=== PATIENT | female | born 1985 | race Caucasian/White ===

== ENCOUNTER → 2019-10-02 08:52 | Outpatient (CLI) | payer OTHER, SELFPAY ==
[2019-10-02 09:31] LABS: Basophils # 0.1 K/mm3 (0-0.2); Basophils % 0.9 % (0.1-2.0); Eosinophils # 0.1 K/mm3 (0.0-0.4); Eosinophils % 1.3 % (0.1-12.0); Hematocrit 41.9 % (37.0-47.0); Hemoglobin 14.2 g/dL (12.2-16.2); Lymphocytes # 2.2 K/mm3 (0.7-4.5); Lymphocytes % 39.6 % (10-50); Mean Corpuscular HGB Conc 33.7 g/dL (31.8-35.4); Mean Corpuscular Hemoglobin 28.6 pg (27.0-31.2); Mean Corpuscular Volume 84.7 fl (81-99); Mean Platelet Volume 9.1 fl (7.4-10.4); Monocytes # 0.3 K/mm3 (0.1-1.0); Neutrophils % 53.2 % (37.0-80.0); Platelet Count 234 K/mm3 (142-424); Red Blood Count 4.95 M/mm3 (4.20-5.40); Red Cell Distribution Width 12.6 % (11.5-17.5); White Blood Count 5.7 K/mm3 (4.8-10.8)
[2019-10-02 11:17] LABS: Chloride 101 mmol/L (98-107); Potassium 4.2 mmoL/L (3.5-5.1); Sodium 137 mmol/L (136-145)
[2019-10-02 11:19] LABS: Alanine Aminotransferase 18 U/L (12-78); Aspartate Amino Transferase 24 U/L (14-36); Blood Urea Nitrogen 13 mg/dl (7-17); Estimated Glomerular Filt Rate 82 ml/min (>60); GFR (African American) 99 ML/MIN (>60)
[2019-10-02 11:20] LABS: Albumin/Globulin Ratio 1.5 (1.1-1.8); Alkaline Phosphatase 87 U/L (38-126); Anion Gap 9.2 mEq/L (5-15); Bilirubin,Total 0.4 mg/dl (0.2-1.3); Calcium 9.3 mg/dl (8.4-10.2); Carbon Dioxide 31 mmol/L (22.0-30.0); Chol/HDL Ratio 3.5 (1-3.5); Cholesterol 202 mg/dl (140-200); Globulin 2.7 g/dL (1.3-3.2); Glucose 102 mg/dl (74-100); HDL Cholesterol 57 mg/dl (40-60); Total Protein,Serum 6.7 g/dl (6.3-8.2); Triglycerides 101 mg/dl (30-150); VLDL Cholesterol 20 mg/dL (0-40)
[2019-10-02 11:31] LABS: Direct LDL Cholesterol 119.45 mg/dL (100-129)
== END ==
PROVIDERS: Visit Provider Nurse Practitioner Family
DX: Z00.00 Encounter for general adult medical examination without abnormal findings (principal)
CPT/HCPCS: 36415; 80053; 80061; 84443; 85025

== ENCOUNTER → 2020-01-16 15:45 | Outpatient (POV) | payer OTHER, SELFPAY | PROVIDERS: PCP Nurse Practitioner Family; Visit Provider Dermatology | DX: Z00.00 Encounter for general adult medical examination without abnormal findings (principal) ==

== ENCOUNTER → 2020-06-04 14:37 | Outpatient (CLI) | payer OTHER, SELFPAY ==
[2020-06-06 12:35] LABS: Covid-19 Nasal PCR Sendout Lex Not Detected
== END ==
PROVIDERS: PCP Nurse Practitioner Family; Visit Provider Nurse Practitioner Family
DX: Z03.818 Encounter for observation for suspected exposure to other biological agents ruled out (principal)
CPT/HCPCS: U0004

== ENCOUNTER 2020-11-06 13:33 | Emergency (ER) | payer OTHER, SELFPAY ==
[2020-11-06 13:35] VITALS: BP 152/81; PULSE 104; RESP 18; TEMP 36.6; O2SAT 98; BMI 28.6
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
[2020-11-06 14:00] VITALS: BP 138/89; PULSE 115; O2SAT 95
[2020-11-06 14:13] LABS: Urine Pregnancy, HCG Qual. Negative (Negative)
[2020-11-06 14:17] LABS: Chloride 104 mmol/L (98-107)
[2020-11-06 14:18] LABS: Potassium 4.1 mmoL/L (3.5-5.1); Sodium 137 mmol/L (136-145)
[2020-11-06 14:20] LABS: Basophils # 0.1 K/mm3 (0-0.2); Basophils % 0.6 % (0.1-2.0); Blood Urea Nitrogen 11 mg/dl (7-17); Creatinine Clearance Estimated 119 mL/min (50-200); Eosinophils # 0.1 K/mm3 (0.0-0.4); Eosinophils % 1.1 % (0.1-12.0); Estimated Glomerular Filt Rate 81 ml/min (>60); GFR (African American) 98 ML/MIN (>60); Hematocrit 41.7 % (37.0-47.0); Hemoglobin 13.8 g/dL (12.2-16.2); Lymphocytes # 2.7 K/mm3 (0.7-4.5); Lymphocytes % 28.6 % (10-50); Mean Corpuscular HGB Conc 33.2 g/dL (31.8-35.4); Mean Corpuscular Hemoglobin 28.1 pg (27.0-31.2); Mean Corpuscular Volume 84.7 fl (81-99); Mean Platelet Volume 9.3 fl (7.4-10.4); Monocytes # 0.3 K/mm3 (0.1-1.0); Monocytes % 3.5 % (1.7-9.3); Neutrophils # 6.1 K/mm3 (1.8-7.8); Neutrophils % 66.2 % (37.0-80.0); Platelet Count 263 K/mm3 (142-424); Red Blood Count 4.92 M/mm3 (4.20-5.40); Red Cell Distribution Width 13.4 % (11.5-17.5); White Blood Count 9.3 K/mm3 (4.8-10.8)
[2020-11-06 14:21] LABS: Anion Gap 10.1 mEq/L (5-15); Calcium 9.2 mg/dl (8.4-10.2); Carbon Dioxide 27 mmol/L (22.0-30.0); Glucose 116 mg/dl (74-100)
--- NOTE | 2020-11-06 14:43 | PC.NURSE ---
Pt returned from rad.
[2020-11-06 15:50] VITALS: BP 143/71; PULSE 83; RESP 18; TEMP 36.7; O2SAT 99
== END 2020-11-06 15:56 | disposition home or self-care (01) ==
PROVIDERS: Emergency Provider Family Medicine; PCP Nurse Practitioner Family
DX: M43.6 Torticollis (principal); V43.53XA Car driver injured in collision with pick-up truck in traffic accident, initial encounter; Y92.414 Local residential or business street as the place of occurrence of the external cause
CPT/HCPCS: 70450; 71275; 72125; 74177; 80048; 81025; 85025; 96374; 99282; Q9967

== ENCOUNTER → 2020-11-26 13:36 | Outpatient (POV) | payer OTHER, SELFPAY | PROVIDERS: Visit Provider Dermatology | DX: Z00.00 Encounter for general adult medical examination without abnormal findings (principal) ==

== ENCOUNTER 2020-12-30 12:50 | Emergency (ER) | payer OTHER, SELFPAY ==
[2020-12-30 12:50] VITALS: BP 148/88; PULSE 128; RESP 18; TEMP 37.2; O2SAT 96; BMI 30.2
--- NOTE | 2020-12-30 13:24 | HMH.EDUTC ---
[facility] [place] Disposition Clinical Impression: Strep throat Disposition: Home, Self-Care Condition on Discharge: Good Instructions: DI for Strep Throat, Strep Throat, Sinusitis Additional Instructions: *Monitor Temp, Over the counter Motrin or Tylenol as directed/as needed Tylenol every 4 hours and Motrin every 6 hours (as long as your family doctor has told you that you can take it) for fever or pain. and straight to ER if unable to lower temp less than 101.0 after medication given *Warm salt water gargles may help to soothe the throat *Throat Lozenges *Warm fluids like tea with honey may help to soothe the throat *Sleep elevated *Humidifier/Vaporizer If you did not take Penicillin shot or was unable to, start taking antibiotic immediately and make sure that you take it for the FULL length of time although you should start to feel better in 24-48 hours *change toothbrush and toothpaste 24-48 hours after starting to take antibiotics so you do not reinfect yourself Monitor Temp. Tylenol and/or Ibuprofen as needed. ER if fever is no less than 101 despite alternating Tylenol and Ibuprofen * Encourage fluids, water, Gatorade, powerade, pedialyte if /toddler/or child *Cold fluids, popsicles and ice cream may feel good on his throat Follow up IMMEDIATELY for new or worsening symptoms or no Noticeable improvement over the next 48-72 hours. 911 for difficulty breathing or swallowing You were tested for today for COVID19 your test result should be back in the next 24-48 hours, you may call to the [facility] to see if your test results are back in the next 48 hours [phone] [facility] hours are 9am-9pm You was given a handout with instructions for Self Quarantine and Self isolation for while you wait on test results and what to do if they are positive If you are positive the Health Dept will be contacting you also Prescriptions: Amoxicillin/Potassium Clav [Augmentin 875-125 Tablet] 1 tab PO Q12H 10 Days #20 tab Transmission Status: Pending to [facility] #[id number] methylPREDNISolone [Medrol 4mg tab] 4 mg PO DIRECTED #21 tab Transmission Status: Pending to [employer] #[id number] Benzonatate [Tessalon Perle 100mg Cap*] 100 mg PO TID PRN #15 cap PRN Reason: Cough Transmission Status: Pending to [facility] [facility] #[id number] Referrals: Samira Harvey APRN [Primary Care Provider] - As needed Time of Disposition: 13:45 Medical Decision Making - Jarred Inquiry Pt receiving controlled substance: No Jarred was queried for this patient: No Vital Signs: 12/30/20 12:50 Temperature 99.0 F Temperature Source Oral Pulse Rate [Right Brachial] 128 H Respiratory Rate 18 Blood Pressure [Right Arm] 148/88 H Blood Pressure Mean [Right Arm] 108 Blood Pressure Source [Right Arm] Automatic Cuff Blood Pressure Position [Right Arm] Sitting 02 Sat by Pulse Oximetry 96 Oxygen Delivery Method Room Air - Lab Data Lab results reviewed: Yes: I reviewed the patient's lab results. Orders (Tests/Meds): ORDERS Category Date Time Status Covid-19 Nasal PCR ([facility]) Routine Lab 12/30/20 13:10 Received [facility] [place] HPI - General Stated complaint: congestion, aches, sore throat Time Seen by Provider: 12/30/20 13:24 Mode of Arrival: Ambulatory Source of Information: Patient Limitations: No Limitations Description of Symptoms (Recalled from Triage Doc. by RN): PATIENT C/O BODY ACHES, SCRATCHY THROAT, CHEST CONGESTION, PRODUCTIVE COUGH, HEADACHE, AND NASAL CONGESTION SINCE WEDNESDAY. RECENT TRAVEL HEENT Symptoms (Recalled from RN notes): Yes Resp Symptoms (Recalled from RN notes): No Skin Symptoms (Recalled from RN notes): No MS Symptoms (Recalled from RN notes): Yes Functional Status (Recalled from RN notes): WNL - History of Present Illness Provider Complaint: Patient states that she has just recently got [place] that she is feeling achy like she may have the flu States that she has been having sinus pressure, sore throat,
[2020-12-30 13:48] LABS: UTC Strep Screen (Rapid) Positive (Negative)
[2020-12-30 13:50] VITALS: BP 148/88; PULSE 128; RESP 18; TEMP 37.2; O2SAT 96
[2020-12-30 19:02] LABS: UTC Influenza A Antigen Negative (Negative)
[2020-12-30 19:03] LABS: UTC Influenza B Antigen Negative (Negative)
== END 2020-12-30 13:52 | disposition home or self-care (01) ==
PROVIDERS: Emergency Provider Nurse Practitioner; PCP Nurse Practitioner Family
DX: J02.0 Streptococcal pharyngitis (principal)
CPT/HCPCS: 87804; 87880; 99202; G0463; U0003

== ENCOUNTER → 2021-01-27 17:54 | Outpatient (CLI) | payer OTHER, SELFPAY | PROVIDERS: Visit Provider Nurse Practitioner Family | DX: R30.0 Dysuria (principal) | CPT/HCPCS: 87086; 87088; 87186 ==

== ENCOUNTER → 2021-07-23 08:21 | Outpatient (CLI) | payer OTHER, SELFPAY | PROVIDERS: PCP Nurse Practitioner Family; Visit Provider Nurse Practitioner | DX: U07.1 COVID-19 (principal) | CPT/HCPCS: C9803; U0003; U0005 ==

== ENCOUNTER → 2021-08-22 12:56 | Outpatient (CLI) | payer OTHER, SELFPAY | PROVIDERS: PCP Nurse Practitioner Family; Visit Provider Nurse Practitioner Family | DX: G47.33 Obstructive sleep apnea (adult) (pediatric) (principal) | CPT/HCPCS: 95806 ==

== ENCOUNTER 2021-09-02 09:21 | Emergency (ER) | payer OTHER, SELFPAY ==
--- NOTE | 2021-09-02 10:32 | HMH.EDUTC ---
[facility] [place] Disposition Clinical Impression: Influenza A Disposition: Home, Self-Care Condition on Discharge: Good Instructions: Influenza, DI for Influenza -- Adult Additional Instructions: Drink plenty of fluids. Take tylenol or ibuprofen for pain or fever. Take the medications as directed. Follow up with your regular doctor. GO TO THE ER FOR ANY WORSENING SYMPTOMS Don't start the oral steroids until tomorrow, since you had the shot here today. The cough medication (promethazine dm) will make you drowsy, so don't drive or operate heavy machinery after taking it. Prescriptions: Promethazine/Dextromethorphan [Promethazine-Dm Syrup] 5 ml PO Q6HP PRN #240 ml PRN Reason: Cough Transmission Status: Received by [facility] #[id number] Ondansetron [Zofran 4mg ODT] 4 mg PO Q8HP PRN #20 tab PRN Reason: Nausea Transmission Status: Received by [facility] #[id number] methylPREDNISolone [Medrol] 4 mg PO DIRECTED 6 Days #21 packet Transmission Status: Received by [facility] #[id number] Oseltamivir Phosphate [Tamiflu 75mg Capsule] 75 mg PO BID #10 cap Transmission Status: Received by [facility] #[id number] Azithromycin [Z-Chpaito 250mg Tab*] 250 mg PO UD DOSE PK #6 tab Transmission Status: Received by [facility] #[id number] Referrals: Samira Harvey APRN [Primary Care Provider] - Forms: Work/School Release Time of Disposition: 11:26 Medical Decision Making - Medical Records Medical records reviewed: No: I reviewed the patient's medical records. - Jarred Inquiry Pt receiving controlled substance: No Vital Signs: 09/02/21 10:56 09/02/21 11:43 Temperature 98.6 F 98.6 F Temperature Source Oral Pulse Rate 99 H Pulse Rate [Left] 99 H Respiratory Rate 18 18 Blood Pressure 161/120 H Blood Pressure [Right Arm] 161/120 H Blood Pressure Mean [Right Arm] 133 02 Sat by Pulse Oximetry 100 - Lab Data Lab results reviewed: Yes: I reviewed the patient's lab results. Lab Results 09/02/21 10:58: Influenza Type A Ag Positive A, Influenza Type B Ag Negative Orders (Tests/Meds): ED MEDICATIONS Discontinued Medications Generic Name Dose Route Start Last Admin Trade Name Tenzin PRN Reason Stop Dose Admin Dexamethasone Sodium Phosphate 8 mg 09/02/21 11:23 09/02/21 11:28 Dexamethasone 4mg/Ml 1ml Vial IM 09/02/21 11:24 8 mg ONCE ONE Administration [facility] [place] HPI - General Stated complaint: runny nose, congestion, h/a Time Seen by Provider: 09/02/21 11:00 - History of Present Illness Provider Complaint: She c/o sinus congestion, runny nose, head ache and cough for the past 1 days. - Related Data Home Medications Medication Instructions Recorded Confirmed venlafaxine 37.5 mg 75 mg PO QHS 07/29/17 05/06/21 capsule,extended release 24 hr Levocetirizine Dihydrochloride 5 mg PO DAILY 12/30/20 05/06/21 [Xyzal] Previous Rx's Medication Instructions Recorded amoxicillin 500 mg capsule 500 mg PO Q12H 10 Days #20 cap 05/06/21 fluconazole 150 mg tablet 150 mg PO Q3D 0 Days #2 tab 05/06/21 ciprofloxacin HCl 500 mg tablet 500 mg PO BID #20 tab 06/28/21 Azithromycin [Z-Chapito 250mg Tab*] 250 mg PO UD DOSE PK #6 tab 09/02/21 Ondansetron [Zofran 4mg ODT] 4 mg PO Q8HP PRN #20 tab 09/02/21 Oseltamivir Phosphate [Tamiflu 75 mg PO BID #10 cap 09/02/21 75mg Capsule] Promethazine/Dextromethorphan 5 ml PO Q6HP PRN #240 ml 09/02/21 [Promethazine-Dm Syrup] methylPREDNISolone [Medrol] 4 mg PO DIRECTED 6 Days #21 09/02/21 packet Allergies Allergy/AdvReac Type Severity Reaction Status Date / Time No Known Allergies Allergy Verified 05/06/21 16:05 [facility] History - Hepatitis A Screen Attestation statement:: This patient has been screened for Hepatitis A risk factors. I have reviewed the patient's past medical history: Yes Medical History: Reports:: Anxiety Laterality Cases: Bilateral: Tonsillectomy Other [place]
[2021-09-02 10:56] VITALS: BP 161/120; PULSE 99; RESP 18; TEMP 37; O2SAT 100; BMI 29.1
[2021-09-02 11:06] LABS: UTC Influenza A Antigen Positive (Negative); UTC Influenza B Antigen Negative (Negative)
[2021-09-02 11:43] VITALS: BP 161/120; PULSE 99; RESP 18; TEMP 37
== END 2021-09-02 11:44 | disposition home or self-care (01) ==
PROVIDERS: Emergency Provider Nurse Practitioner Family; PCP Nurse Practitioner Family
DX: J10.1 Influenza due to other identified influenza virus with other respiratory manifestations (principal)
CPT/HCPCS: 87804; 96372; 99212; G0463

== ENCOUNTER → 2021-11-03 13:44 | Outpatient (CLI) | payer OTHER, SELFPAY ==
--- NOTE | 2021-11-03 13:52 | CA_ITS ---
APPROVED REPORT EXAM: Comprehensive 2D, Doppler, and color-flow Echocardiogram Deputy Sheriff Generalist: Mouna Monroy RVT Ht: 5 ft 5 in Wt: 184lbs BSA: 1.91 BP: 161/120 mmHg Indications: HTN,HX COVID,MARIAM 2D Dimensions LVOT 2.02 cm (M/F) 1.5-2.5 LA Volume 20.60 mL LA Volume Index 10.78 mL/m2 (M/F) 16-34 M-Mode Dimensions RVDd 2.28 cm (0.9-2.6) LA Diam 2.27 cm (1.9-4.0) LVDd 3.80 cm (3.5-5.7) Ao Diam 2.92 cm (2.0-3.7) LVDs 1.75 cm (3.5-5.7) IVSd 1.03 cm (0.6-1.1) PWd 0.84 cm (0.6-1.1) EF (Teich) 85.50% FS 53.90% EDV (Teich) 62.00 mL TAPSE 1.13 (<1.7) ESV (Teich) 9.00 mL LV Diastology E Decel Time 217.00 (160-240 msec) E/A Ratio 0.8 MED E' 5.50 (< 7 cm/sec) E'/MED E' Ratio 12.78 (>14) LAT E' 11.00 (<10 cm/sec) E/LAT E' Ratio 6.39 (>14) Aortic Valve AO Peak GR. 6.80 mmHg Mitral Valve MV E Max Jose Miguel. 70.00 (40-130 cm/s) MV A Velocity 93.00 (40-130 cm/s) E/A Ratio 0.75 MV Decel. Time 217.00 (160-240 ms) MV PHT 63.00 ms Pulmonary Valve PV Peak Velocity 88.00 (50-150 cm/s) Tricuspid Valve TR P. Velocity 163.00 cm/s RAP Estimate 10.00 mmHg RVSP 20.60 mmHg Left Ventricle Left atrium is normal size, left ventricle is normal size, estimated ejection fraction 55% with no regional wall motion abnormality, diastolic parameters are inconclusive. Right Ventricle Right atrium and right ventricle are normal size and contractility. Aortic Valve Aortic valve is grossly normal, there is no aortic stenosis or aortic insufficiency. Mitral Valve Mitral valve grossly normal, there is trace mitral regurgitation. Tricuspid Valve Tricuspid valve grossly normal, there is trace tricuspid regurgitation, tricuspid regurgitation jet velocity is inadequate for calculation of the right ventricular systolic pressure. Pulmonic Valve Pulmonic valve is poorly visualized. Great Vessels Aortic root is normal size. Inferior vena cava normal size with normal inspiratory collapse. Pericardium No significant pericardial effusion noted. Conclusion 1. Normal left ventricular size, preserved left ventricular systolic function, estimated ejection fraction 55% with no regional wall motion abnormality, diastolic parameters are inconclusive. 2. Trace mitral and tricuspid regurgitation. 3. No significant pericardial effusion. 4. Inferior vena cava normal size with normal inspiratory collapse. Electronically signed by : Sudarshan Villafuerte MD 11/03/2021 15:49:37
== END ==
PROVIDERS: PCP Nurse Practitioner Family; Visit Provider Nurse Practitioner Family
DX: I10 Essential (primary) hypertension (principal); R06.00 Dyspnea, unspecified; E66.3 Overweight; Z68.30 Body mass index [BMI] 30.0-30.9, adult; G47.33 Obstructive sleep apnea (adult) (pediatric)
CPT/HCPCS: 93306

== ENCOUNTER 2024-05-26 11:28 | Emergency (ER) | payer BC, SELFPAY ==
[2024-05-26 13:33] VITALS: BP 141/90; PULSE 110; RESP 21; TEMP 37.2; O2SAT 97; BMI 33.3
--- NOTE | 2024-05-26 13:36 | ED_ITS ---
Discharge Plan Disposition Patient Disposition: Home, Self-Care Condition: Good Prescriptions Prescriptions: New azithromycin [Zithromax] 250 mg tablet 250 mg PO UD DOSE PK Qty: 6 0RF Rx Instructions: Take two (2) tablets today, then one (1) tablet days #2 thru #5 methylprednisolone 4 mg Tablets,Dose Pack 4 mg PO DIRECTED 6 Days Qty: 21 0RF Rx Instructions: Take 1 pack as directed for 6 days [id number]-[id number] [Bromfed DM] 2-30-10 mg/5 mL Syrup 5 ml PO Q6H PRN (Reason: Cough) Qty: 240 0RF fluconazole 150 mg tablet 150 mg PO ONCE Qty: 1 3RF No Action venlafaxine [Effexor XR] 37.5 mg capsule,extended release 24hr 75 mg PO QHS amoxicillin 500 mg capsule 500 mg PO Q12H 10 Days Qty: 20 0RF fluconazole [Diflucan] 150 mg tablet 150 mg PO Q3D 0 Days Qty: 2 0RF Rx Instructions: may repeat second dose 72 hrs after first dose if symptoms persist ciprofloxacin HCl [Cipro] 500 mg tablet 500 mg PO BID Qty: 20 0RF ondansetron 4 mg tablet,disintegrating 4 mg PO Q8HP PRN (Reason: Nausea) Qty: 30 1RF azithromycin 250 mg tablet 250 mg PO UD DOSE PK Qty: 6 0RF Rx Instructions: Take two (2) tablets today, then one (1) tablet days #2 thru #5 methylprednisolone 4 mg tablets,dose pack 4 mg PO DIRECTED 6 Days Qty: 21 0RF fluconazole 150 mg tablet 150 mg PO Q3D Qty: 2 0RF promethazine-DM 120 ML syrup 5 ml PO Q6HP PRN (Reason: Cough) Qty: 240 0RF oseltamivir 75 MG capsule 75 mg PO BID Qty: 10 0RF levocetirizine 5 MG tablet 5 mg PO DAILY Referrals Follow up/Referrals: Samira Harvey APRN [Primary Care Provider] - See instructions Activity Restrictions/Add. Instructions Additional Instructions/Restrictions: Drink plenty of fluids. Take tylenol or ibuprofen for pain or fever. Take the medications as directed. Follow up with your regular doctor. GO TO THE ER FOR ANY WORSENING SYMPTOMS Clinical Impressions Clinical Impression: Pharyngitis Stand Alone Forms Stand Alone Forms: Work/School Release Instructions Patient Instructions: Sore Throat, DI for Pharyngitis/Tonsillopharyngitis -- Adult Print Language Print Language: Luxembour[place] Discharge ED Provider: Philip Casas [facility] [place] General Stated complaint: sore throat, aches, congestion Mode of Arrival: Ambulatory Source of Information: Patient Time Seen by Provider: 05/26/24 13:36 Description of Symptoms (Recalled from Triage Doc. by RN): BODY ACHES, CONGESTION, COUGH, SORE THROAT HEENT Symptoms (Recalled from RN notes): Yes Resp Symptoms (Recalled from RN notes): Yes Skin Symptoms (Recalled from RN notes): No MS Symptoms (Recalled from RN notes): No Functional Status (Recalled from RN notes): WNL Related Data Home Medications ?Medication ?Instructions ?Recorded ?Confirmed venlafaxine 37.5 mg 75 mg PO QHS Anxiety 07/29/17 05/06/21 capsule,extended release 24 hr (Effexor XR) levocetirizine 5 mg tablet 5 mg PO DAILY Allergy symptoms 12/30/20 05/06/21 Previous Rx's ?Medication ?Instructions ?Recorded amoxicillin 500 mg capsule 500 mg PO Q12H sinus infection 10 05/06/21 days #20 caps fluconazole 150 mg tablet 150 mg PO Q3D prophylaxis while on 05/06/21 (Diflucan) abtx 2 doses #2 tabs ciprofloxacin HCl 500 mg tablet 500 mg PO BID #20 tabs 06/28/21 (Cipro) oseltamivir 75 mg capsule 75 mg PO BID #10 caps 09/02/21 promethazine-DM 6.25 mg-15 mg/5 mL 5 ml PO Q6HP PRN Cough #240 mL 09/02/21 oral syrup azithromycin 250 mg tablet 250 mg PO UD DOSE PK #6 tabs 03/23/23 methylprednisolone 4 mg tablets in 4 mg PO DIRECTED 6 days #21 03/23/23 a dose pack packets ondansetron 4 mg disintegrating 4 mg PO Q8HP PRN Nausea #30 tabs 03/23/23 tablet fluconazole 150 mg tablet 150 mg PO Q3D 2 doses #2 tabs 03/24/23 azithromycin 250 mg tablet 250 mg PO UD DOSE PK #6 tabs 05/26/24 (Zithromax) cpeyuyaquydowpx-iqntgqetwipckov-OA 5 ml PO Q6H PRN Cough #240 mL 05/26/24 2 mg-30 mg-10 mg/5 mL oral syrup (Bromfed DM) fluconazole 150 mg tablet 150 mg PO ONCE 1 dose #1 tab 05/26/24 methylprednisolone 4 mg tablets in 4 mg PO DIRECTED 6 days #21 tabs 05/26/24 a dose pack Allergies Allergy/AdvReac Type Severity Reaction Status Date / Time No Known Allergies Allergy Verified 05/06/21 16:05 Worker's Comp Is this a Worker's Comp case?: No PFSH FOR[facility] Disclaimer: The information contained in this section may have been updated after the patient was seen, as this information can be updated by other users. Social History Smoking Status: Never smoker second hand exposure: No alcohol intake: never substance use type: denies use current occupational status: other housing: house ROS Obtained: Yes All systems reviewed & no additional complaints except as documented Constitutional Constitutional: Reports chills and Reports fever(s) Eyes Eyes: Denies eye discharge ENT Ears, Nose, Mouth, and Throat: Reports as per HPI Cardiovascular Cardiovascular: Denies chest pain Respiratory Respiratory: Denies chest congestion and Reports cough Gastrointestinal Gastrointestingal: Reports nausea; Denies abdominal pain, constipation, cramping, diarrhea or vomiting Musculoskeletal Musculoskeletal: Denies arthralgias Integumentary/Breasts Skin/Breast: Denies rash Neurologic Neurologic: Denies paresthesias Physical Exam General General appearance: alert and in no apparent distress Head Head exam: atraumatic, normocephalic and normal inspection Eye Eye exam: Present normal appearance, PERRL and EOMI ENT ENT exam: Present mucous membranes moist and normal external ear exam Expanded ENT Exam TM/Canal exam: Bilateral TM: erythema and bulging Nose exam: Absent sinus tenderness Mouth exam: Present normal external inspection; Absent drooling Teeth exam: Present normal inspection Throat exam: Present tonsillar erythema, tonsillomegaly and tonsillar exudate Neck Neck exam: Present normal inspection, full ROM and trachea midline; Absent tenderness, meningismus or lymphadenopathy Chest Chest inspection: Present normal inspection and symmetric chest wall rise; Absent tenderness Respiratory Respiratory exam: Present normal lung sounds bilaterally; Absent respiratory distress, wheezes, stridor or accessory muscle use Cardiovascular Cardiovascular exam: Present regular rate and normal rhythm; Absent systolic murmur or diastolic murmur Abdominal Exam Abdominal exam: Present soft and normal bowel sounds; Absent distention, te nderness, guarding, rebound or rigidity Extremities Exam Extremities exam: Present normal inspection and normal capillary refill; Absent calf tenderness Back Exam Back exam: Present normal inspection and full ROM; Absent tenderness, CVA tenderness (R) or CVA tenderness (L) Neurological Exam Neurological exam: Present alert, oriented X3 and CN II-XII intact Psychiatric Psychiatric exam: Present normal affect and normal mood Skin Skin exam: Present warm, dry, intact and normal color Medical Decision Making Medical Records Medical records reviewed: No I reviewed the patient's medical records. Screening: Per USPSTF and CDC recommendations, given the prevalence of disease in our region, it is our hospital?s policy to screen for HIV and viral Hepatitis for all patients aged 18 and over and those with ongoing risk factors. Jarred Inquiry Pt receiving controlled substance: No Vital Signs: 05/26/24 13:33 Temperature 98.9 F Temperature Source Oral Pulse Rate [Left Radial] 110 H Respiratory Rate 21 Blood Pressure [Left Arm] 141/90 H Blood Pressure Mean [Left Arm] 107 02 Sat by Pulse Oximetry 97
[2024-05-26 13:49] LABS: UTC Influenza A Antigen Negative (Negative); UTC Influenza B Antigen Negative (Negative); UTC Strep Screen (Rapid) Negative (Negative)
[2024-05-26 14:04] VITALS: BP 141/90; PULSE 110; RESP 21; TEMP 37.2
== END 2024-05-26 14:11 | disposition home or self-care (01) ==
PROVIDERS: Emergency Provider Nurse Practitioner Family; PCP Nurse Practitioner Family
DX: J02.9 Acute pharyngitis, unspecified (principal); R05.9 Cough, unspecified; R09.81 Nasal congestion; R50.9 Fever, unspecified; R11.0 Nausea
CPT/HCPCS: 87804; 87880; 99212; G0381

== ENCOUNTER 2025-01-06 16:23 | Outpatient (CLI) | payer BC, SELFPAY ==
--- OUTSIDE RECORDS SUMMARY | 2025-01-08 11:22 | XMS_ITS | Data Portability ---
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 available 08/13/2023 Do you or have you ever used any other forms of tobacco or nicotine? No Information not available 08/13/2023 What is your level of alcohol consumption? None Information not available 07/21/2018 What is your status? Not Information no t available 08/13/2023 Are you able to walk? YESWOREST [email or web address] Information not available 08/13/2023 Do you have difficulty doing errands alone? 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 [id number] [email or web address] Information not available 08/13/2023 Do you have difficulty concentrating, remembering or making decisions? No [email or web address] Information no t available 08/13/2023 Family History Relationship Description Onset Age of this Age Resolved Age Notes LastModified by Organization Details LastModified Time Maternal Grandfather Chronic obstructive pulmonary disease ntarter Not available 2018 09:31:18 Maternal Grandfather Diabetes mellitus [email or web address] Not available 2023 10:23:48 Maternal Grandfather Glaucoma [email or web address] Not available 10:23:48 Paternal Grandfather Diabetes mellitus [email or web address] Not available 2023 10:23:48 Paternal Grandfather Malignant neoplasm of lung ntarter Not available 2018 09:32:00 Paternal Grandfather Myocardial infarction [email or web address] Not available 08/13 10:23:48 Maternal Grandmother Myocardial infarction Not available 08/13 10:23:48 Maternal Grandmother Seizure [email or web address] Not available 07/29 10:23:48 Mother Polyp colon cancer ous Not available 08/13/2023 10:23:48 Mother Malignant neoplastic disease [email or web address] Not available 2023 10:23:48 Mother Arthritis [email or web address] Not availab le 08/13/2023 10:23:48 Mother Hypertensive disorder [email or web address] Not available 2023 10:23:48 Paternal Grandmother Heart disease 55 2021 Not available 2023 10:23:48 Unspecified Relation Hypercholest erolemia [email or web address] Not available 2023 10:23:48 Father Anxiety disorder [email or web address] Not available 2023 10:23:48 Father Hypertensive disorder [email or web address] Not available 2023 10:23:48 Father Diabetes mellitus [email or web address] Not available 2023 10:23:48 Medical History Condition Response Anxiety Disorder Y Abnormal PAP Y Pre-Eclampsia Y Kidney or Bladder Problems Y Hypertension Y Gynecological History Statement/Question Response Abnormal Pap Y Date of Last Mammogram 10/25/2023 Flow Heavy Date of LMP 07/22/2023 Post Menopausal Bleeding N STIs/STDs N Colposcopy 07/11/2015 HPV Vaccine N Duration of Flow (days) 5 Age at Menarche 10 Most Recent Mammogram 10/25/2023 Current Control Method Tubal Ligat ion Age at First Child 24 Last Annual Exam/Provider 08/13/2023 w/DT Date of Last Colonoscopy 11/08/2023 Frequency of Cycle (Q days) 26 Sexually Active? Y Menses Monthly Y Date of Last Pap Smear 08/13/2023 Sexual Problems? N LMP Approximate Hormone Replacement Therapy N Obstetrics History GPAL:G 2 P 1 1 0 2 Type Value Full Term 1 Premature 1 Living 2 Total 2 Immunizations Vaccine Type Date Status Note Provider Name and Address Organization Details Recorded Time Influenza, split virus, quadrivalent, preservative 08/31/19 21 cancelled patient objection Joyce Finnegan, DISCHARGE PLANNER [address], [place], [address], [place] [facility] 08/30/2020 12:48:39 influenza, unspecified formulation 06/10/20 15 completed Not Available [facility] 07/29/2019 02:21:37 influenza, unspecified formulation 04/12/20 13 completed Not Available [facility] 07/29/2019 02:21:37 Tdap 05/23/20 13 completed Not Available [facility] 07/29/2019 02:21:49 SARS-COV-2 (COVID-19) vaccine, UNSPECIFIED 07/03/19 21 completed Saira spain, [place] - [facility] 08/30/2020 10:25:46 SARS-COV-2 (COVID-19) vaccine, UNSPECIFIED 07/31/19 21 completed Saira Finney null, [place] - [facility] 08/30/2020 10:25:50 Past Encounters Encounter ID Performer Location Encounter Start Date Encounter Closed Date Diagnosis/Indication Diagnosis SNOMED-CT Code Diagnosis ICD10 Code Diagnosis Note [id number] [facility] [address] [place] [address] 11/14/2012 00:00:00 [id number] [facility] [address] [place] [address] 12/02/2012 00:00:00 [id number] [facility] [address] [place] [address] 08/25/2013 00:00:00 [id number] [facility] [address] [place] [address] 06/10/2015 00:00:00 [id number] [facility] [address] [place] [address] 07/11/2015 00:00:00 [id number] [facility] [address] [place] [address] 11/18/2015 00:00:00 [id number] [facility] [address] [place] [address] 12/19/2015 00:00:00 [id number] [facility] [address] [place] [address] 04/08/2006 00:00:00 [id number] [facility] [address] [place] [address] 04/23/2008 00:00:00 [id number] [facility] [address] [place] [address] 12/02/2010 00:00:00 [id number] [facility] [address] [place] [address] 12/04/2011 00:00:00 [id number] [facility] [address] [place] [address] 11/14/2012 00:00:00 [id number] JODY Lizama LDR NURSE [address] [place] [address] PAMELLA Han [id number] 07/21/2018 10:22:18 07/21/2018 11:27:09 Routine gynecologic examination done 4780044785 9101 Z01.419 Depression screening 171 996925 Z13.89 Hypertensi on screening 755687598 Z13.6 Screening for malignant neoplasm of cervix 093516394 Z12.4 Diet education 55485863 Z71.3 Encourage healthy eating/dec reased fats, sugars, fried foods Counseling 507407077 Z71 .82 Encouraged regular exercise 30-40 min/day 4-5 days/wk Body mass index 25-29 - overweight 850767912 Z68.29 [id number] JODY Lizama LDR NURSE [address] [place] [address] PAMELLA Han [id number] 08/30/2020 10:13:44 08/30/2020 11:20:06 Routine gynecologic examination done 8065336209 9101 Z01.419 Depression screening 171 278493 Z13.89 Hypertensi on screening 909090276 Z13.6 Diet education 16173270 Z71.3 Encourage healthy eating/dec reased fats, sugars, fried foods Screening for malignant neoplasm of breast 789515796 Z12.31 Counseling 226089746 Z71 .82 Encouraged regular exercise 30-40min/d ay 4-5 days/wk Examinatio n of blood pressure 660708248 Z01.30 Vaccine de clined by patient 6121441464 02 Z28.21 Pt declined flu vaccine today. Body mass index 30+ - obesity 918447475 Z68.30 Screening for malignant neoplasm of cervix 457771884 Z12.4 [id number] JODY Lizama LDR NURSE [address] [place] [address] PAMELLA Han [id number] 08/13/2023 10:18:43 08/13/2023 11:15:23 Routine gynecologic examination done 1122401623 9101 Z01.419 Depression screening 171 191152 Z13.31 Hypertensi on screening 041965978 Z13.6 Screening for malignant neoplasm of cervix 599652604 Z12.4 Diet education 05435664 Z71.3 Encourage healthy eating/dec reased fats, sugars, fried foods Screening for malignant neoplasm of breast 993687971 Z12.31 Counseling 612757632 Z71 .82 Encouraged regular exercise 30-40min/d ay 4-5 days/wk Examinatio n of blood pressure 333726627 Z01.30 Body mass index 30+ - obesity 724201949 Z68.31 Obesity 207109256 E66.9 Family his tory of cancer of colon 136081643 Z80.0 Health Concerns Section Related Observation LastModified by Organization Detai ls LastModified Time None Recorded Concern Status LastModified by Organization Details LastModified Time None Recorded Advance Directives Directive N: Payers Insurance Date Sequence Insurance Name Policy Number Policy Tsang Covered Member ID Tsang Member ID Guarantor Name 08/13/2023 1 [employer] (PPO) [id number] 1 Drew Sauceda [id number] Drew Sauceda 08/13/2023 1 [employer] (POS) Drew Sauceda [id number] Drew Sauceda Notes Date Note Type Note Provider Name and Address Organization Details Recorded Time 07/21/2018 text/html Annual - MOBReported bypatient.History: Last annual exam: 06/10/15; no gynecologic complaints Current Contraception:Sati sfied with current contraception; Tubal ligation Preventive measures:Encourage self breast examination; Encourage regular exercise; Encourage regular mammograms starting age 40;History of abnormal pap smear/cervical dysplasiaNotes:Genevieve robledo returns for AWE. She is doing well. She states she got in Feb and is very happy! Joyce Finnegan, DISCHARGE PLANNER [address], [place], [address], [place] [facility] 07/21/2018 11:17:33 08/30/2020 text/html Annual - MOBReported bypatient.History: Last annual exam: 07/21/2018; no gynecologic complaints Current Contraception:Sati sfied with current contraception; Tubal ligation Preventive measures:Encourage self breast examination; Encourage regular exercise; Encourage no tobacco use;History of abnormal pap smear/cervical dysplasiaNotes:Genevieve robledo rto for AWE. She is doing well and denies concerns.She states her mother had a cancerous polyp that was contained to the polyp noted on colonoscopy. She had 2 f/u scopes and now goes every 3 years. She was 56 when this was found. I suggested colonoscopy @ 43 for Drew.We also discussed early baseline mammo. She agrees to schedule this. Joyce Finnegan, JODY [address], [place], [address], [place] [facility] 08/30/2020 12:51:34 08/13/2023 text/html Annual - MOBReported bypatient.History: Last annual exam: 08/30/20; no gynecologic complaints Current Contraception:Sati sfied with current contraception; Monogamous relationship; Tubal ligation Preventive measures:Encourage self breast examination; Encourage regular exercise; Encourage no tobacco use;History of abnormal pap smear/cervical dysplasiaNotes:Genevieve robledo rto for AWE. She is doing well.She requests referral to GI. She states she was informed by Dr. Gooden she should start colon cancer screening d/t her mother's dx. Joyce Finnegan, JODY [address], [place], [address], [place] [facility] 08/15/2023 20:55:40 OBGyn Episode No OBEpisode recorded.
--- OUTSIDE RECORDS SUMMARY | 2025-01-08 11:22 | XMS_ITS | Encounter Summary ---
Author Organization Healthcare Address [address] [place] [address] Care Team Providers Care Machine Taper Name Role Phone Samira Harvey APRN Primary Care Provider [phone]- [phone] Encounter Details Date Type Department Care Team (Late st Contact Info) Description 11/26/2022 Community [facility] [address] [place] [address] Samira Harvey APRN [address] [place] [address] MARIAM (obstructive sleep apnea) (Primary Dx) Social History Tobacco Use Types Packs/Day Years Used Date Smoking Tobacco: Never Smokeless Tobacco: Never Alcohol Use Standard Drinks/Week Comments Never 0 (1 standard drink = 0.6 oz pur e alcohol) PHQ-2 Answer Date Recorded Patient Health Questionnaire-2 Score 0 05/06/2021 Comments Unknown Sex and Gender Information Value Date Recorded Sex Assigned at Not on file Legal Sex Female 12:30 PM EDT Gender Identity Not on file Sexual Orientation Not on file documented as of this encounter Plan of Treatment Not on file documented as of this encounter Visit Diagnoses Diagnosis MARIAM (obstructive sleep apnea)- Primary Obstructive sleep apnea (adult) (pediatric) documented in this encounter Additional Health Concerns Assessment Noted Time A fall risk assessment has been complete d for the patient 05/06/2021 10:15 AM EST documented as of this encounter Care Teams Machine Taper Relationship Specialty Start Date End Date Samira Harvey APRN [address] [place] [address] [address] PCP - General 02/28/21 documented as of this encounter
--- OUTSIDE RECORDS SUMMARY | 2025-01-08 11:22 | XMS_ITS | Clinical Summary ---
Author Organization Healthcare Address [address] [place] [address] Care Team Providers Care Supervisor Special Services Name Role Phone Samira Harvey JODY Primary Care Provider +1- [phone] Allergies Active Allergy Reactions Criticality Noted Date Comments Hydromorphone Unknown - Patient st ates they do not know rxn details Low 05/06/2021 Medications venlafaxine XR (Effoxor-XR) 37.5 MG 24 hr capsule Take by mouth 1 (one) time each day. 02/10/2021 Active levocetirizine (Xyzal) 5 MG tablet Take by mouth 1 (one) time each day in the evening. Active Active Problems Problem Noted Date Diagnosed Date Urinary incontinence 05/06/2021 Stress incontinence 05/06/2021 Urge incontinence 05/06/2021 PFD (pelvic floor dysfunction) 05/06/2021 Urinary frequency 05/06/2021 Nocturia 05/06/2021 Family History Medical History Relation Name Comments Diabetes type II Father Hypertension, benign Father Hypertension, benign Mother Relation Name Status Comments Father Mother Social History Tobacco Use Types Packs/Day Years [...] on file Sexual Orientation Not on file Last Filed Vital Signs Vital Sign Reading Time Taken Comments Blood Pressure 130/94 09/11/2021 10:52 AM EDT Pulse 100 09/11/2021 10:52 AM EDT Temperature - - Respiratory Rate - - Oxygen Saturation 96% 09/11/2021 10:52 AM EDT Inhaled Oxygen Concentration - - Weight 83.1 kg (183 lb 3.2 oz) 05/06/2021 10:04 AM EST Height - - Body Mass Index - - Plan of Treatment Health Maintenance Due Date Last Done Comments Dental Oral Exam 1983 Dental Prophylaxis 1983 Dental X-Ray: Bitewings 1983 Dental X-Ray: Full Mouth 1983 [facility]-Depression Screening 1983 [facility]-/Child/Adol SDOH Screenings 1983 [facility]-Varicella Vaccines (1 of 2 - 13+ 2-dose series) 10/11/1996 HPV Vaccines (1 - 3-dose series) 10/11/1998 [facility]- SDOH Screenings 10/11/2001 [facility]-Adult SDOH Screenings 10/11/2001 [facility]-Hepatitis B Vaccines (1 of 3 - 19+ 3-dose series) 10/11/2002 [facility]-Pap Smear 10/11/2004 [facility]-Cervical Cancer Screening 10/11/2013 [facility]-HPV/Cotest 10/11/2013 [facility]-DTaP,Tdap,and Td Vaccines (2 - Td or Tdap) 05/23/2023 05/23/2013 [id number] Vaccine (4 - 2023- season) 2024 06/23/2021, 07/31/2020, 07/03/2020 [facility]-Influenza Vaccine (#1) 02/26/202504/26, 04/12/2013 [facility]-Zoster Vaccines (1 of 2) 10/11/2033 [facility]-Hepatitis A Vaccines Aged Out 019, 06/03/2018 No longer eligible based on patient's age to complete this topic [facility]-HIB Vaccines Aged Out No longer e ligible based on patient's age to complete this topic [facility]-IPV Vaccines Aged Out No longer e ligible based on patient's age to complete this topic [facility]-Pneumococcal Vaccine: Pediatrics (0 to 5 Years) and At-Risk Patients (6 to 49 Years) Aged Out No longer eligible b ased on patient's age to complete this topic [facility]-Rotavirus Vaccines Aged Out No lo nger eligible based on patient's age to complete this topic Insurance PAMELLA SANTAMARIA [id number] [employer] Care Teams Supervisor Special Services Relationship Specialty Start Date End Date Samira Harvey APRN [address] [address] PCP - General 02/28/21
--- OUTSIDE RECORDS SUMMARY | 2025-01-08 11:22 | XMS_ITS | Data Portability ---
Author Organization PAMELLA [facility] & TENZIN Joshi ADMIN Address [address] [place] [address] Assessment No assessment recorded. Plan of Treatment Reminders Order Date Submit Date Provider Last Modified By Organization Details Last Modified Time Details Appointments None recorded. Lab None recorded. Referral None recorded. Procedures None recorded. Surgeries None recorded. Imaging None recorded. Medication Orders Medrol (Chapito) 4 mg tablets in a dose pack 2022 023 HUDSON [id number], [address], [place], [place], [id number], 17:25:09 Zithromax Z-Chapito 250 mg tablet 2022 023 [id number], [address], [place], [place], [phone], 17:25:10 Patient TargetsNo targets recorded. Patient Instructions Encounter Date Encounter Id Patient Instructions Last Modified By Organization Details Last Modified Time 09/30/2022 [id number] Acute Sinusitis: Care Instructions [email or web address] Not available 09/30/2022 17:25:16 Reason for Referral None Reported. Results Created Date Observation Date Name Description Value Unit Range Abnormal Flag Note LastModifiedBy Organization Detail LastModifiedTime 11/08/1911/08/2023 UR HCG QUAL note See Note Order ing Provi cheri: Michi jeffers MD Not Available [address] , [place], [address], 11/08/2023 06:45:33 11/08/1911/0711/08/2023 UR HCG QUAL ur HCG qual NEGATI VE negati ve Not Available [address] , [place], [address], 11/08/2023 06:45:33 11/08/19 24 11/08/2023 UR HCG QUAL performing lab see note ML - [facility] R [address] [place] [address] Not Available [address] , [place], [address], 11/08/2023 06:45:33 08/17/19 24 11/23/2018 audio gram No observ ation record ed. BARCODE Not Available 2023 12:48:36 08/17/19 24 12/19/2018 CT, sinus es, w/o contr ast No observ ation record ed. BARCODE Not Available 2023 12:48:36 Result Notes None recorded. 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 Procedures Surgical History Date Name Laterality Status Provider Name and Address Organization Details Recorded Time Caesarean Section completed ТАТЬЯНА CAN - [facility] & [place] 09/30/2022 17:14:12 Remove tonsils and adenoids completed ТАТЬЯНА CAN - [facility] & [place] 09/30/2022 17:14:18 Imaging Results None recorded. Procedure Notes None recorded. Medical Equipment None Reported. Allergies No known drug allergies Medications Name Sig Start Date Stop Date Status Note LastModified by Organization Details LastModified Time penicillin V potassium 250 mg tablet take 1 tablet (250 mg) by oral route every 8 hours for 7 days 06/22 completed Not Available Not Available Not Available promethazin e-DM 6.25 mg-15 mg/5 mL oral syrup TAKE 5 ML BY MOUTH EVERY 6 HOURS FOR 10 DAYS NEEDED 09/30 completed Not Available Not Available Not Available venlafaxine ER 37.5 mg capsule,ext ended release 24 hr TAKE 1 CAPSULE BY MOUTH EVERY DAY 08/13 completed Not Available Not Available Not Available prednisone 10 mg tablet 07/21 completed Not Available Not Available Not Available venlafaxine ER 75 mg capsule,ext ended release 24 hr TAKE 1 CAPSULE BY MOUTH EVERY DAY active Not Available Not Available No t Available azithromyci n 250 mg tablet TAKE 2 TABLETS BY MOUTH ON DAY 1, AND THEN TAKE 1 TABLET BY MOUTH ONCE A DAY ON DAY 2 THROUGH DAY 5 08/13 completed Not Available Not Available Not Available fluconazole 150 mg tablet TAKE 1 TABLET BY MOUTH 1 TIME. REPEAT IN 3 DAYS NEEDED 09/30 completed Not Available Not Available Not Available benzonatate 200 mg capsule TAKE 1 CAPSULE BY MOUTH THREE TIMES DAILY FOR 7 DAYS NEEDED FOR COUGH 09/30 completed Not Available Not Available Not Available phenazopyri dine 200 mg tablet 07/21 completed Not Available Not Available Not Available Zantac 150 mg tablet take 1 tablet (150 mg) by oral route 2 times per day for 30 days 08/25 completed Not Available Not Available Not Available propranolol 10 mg tablet TAKE 1 TABLET BY MOUTH TWICE DAILY 08/13 completed Not Available Not Available Not Available amoxicillin 875 mg tablet TAKE 1 TABLET BY MOUTH EVERY 12 HOURS FOR 10 DAYS 08/13 completed Not Available Not Available Not Available sulfacetami de sodium 10 % eye drops 08/13 completed Not Available Not Available Not Available oseltamivir 75 mg capsule TAKE 1 CAPSULE BY MOUTH TWICE DAILY FOR 5 DAYS 09/30 completed Not Available Not Available Not Available hydrochloro thiazide 25 mg tablet TAKE 1 TABLET BY MOUTH EVERY DAY 08/13 completed Not Available Not Available Not Available methylpredn isolone 4 mg tablets in a dose pack TAKE BY MOUTH DIRECTED ON INSIDE OF PACKAGE 08/13 completed Not Available Not Available Not Available ondansetron 4 mg disintegrat ing tablet DISSOLVE 1 TABLET IN MOUTH EVERY 8 HOURS NEEDED FOR NAUSEA 08/13 completed Not Available Not Available Not Available Ortho Tri-Cyclen (28) 0.18 mg(7)/0.215 mg(7)/0.25 mg(7)-0.035 mg tablet take 1 tablet by oral route once daily for 28 days 12/02 completed Not Available Not Available Not Available loratadine 10 mg tablet take 1 tablet (10 mg) by oral route once daily for 30 days 08/25 completed Not Available Not Available Not Available amoxicillin 875 mg-potassiu m clavulanate 125 mg tablet TAKE 1 TABLET BY MOUTH EVERY 12 HOURS FOR 10 DAYS 09/30 completed Not Available Not Available Not Available Cryselle (28) 0.3 mg-30 mcg tablet take 1 tablet by oral route once daily for 28 days 02/13 completed Not Available Not Available Not Available Ortho Tri-Cyclen LO (28) 0.18 mg/0.215 mg/0.25 mg-25 mcg tablet take 1 tablet (0.18/0.2 15/0.25 mg-25 mcg) by oral route daily for 84 days 11/18 completed Not Available Not Available Not Available Klor-Con M20 mEq tablet,exte nded release take 1 tablet (20 meq) by oral route 2 times per day with food for 7 days 08/25 completed Not Available Not Available Not Available Ortho-Cycle n (28) 0.25 mg-35 mcg tablet take 1 tablet by oral route once daily 12/02 completed Not Available Not Available Not Available nitrofurant oin monohydrate /macrocryst als 100 mg capsule TAKE 1 CAPSULE BY MOUTH TWICE DAILY FOR 5 DAYS 09/30 completed Not Available Not Available Not Available Sronyx 0.1 mg-20 mcg tablet take 1 tablet by oral route three times daily for 7 days 11/17 completed Not Available Not Available Not Available Xyzal 5 mg tablet Take 1 tablet every day by oral route. 08/13 completed Not Available Not Available Not Available Suflave 178.7 gram-7.3 gram-0.5 gram oral solution Take as directed by Dr. Gooden's office. active Not Available Not Available No t Available Vitals Date Recorded Body weight Body temperature Oxygen saturation Oxygen saturation in Arterial blood by Pulse oximetry Heart rate Systolic And Diastolic Provider Name and Address Organization Details Last Updated DateTime 3 69474.8 1 g 98.2 [degF] 95 % 95 % 100 /min 125/86 mm[Hg] ТАТЬЯНА CAN - [facility] - [place] & [place] 17:15:36 Social History None recorded. Functional Status None recorded. Mental Status None recorded. Family History Relationship Description Onset Age of this Age Resolved Age Notes LastModified by Organization Details LastModified Time Father No current problems or disability [email or web address] Not available 09/30 17:14:05 Mother No current problems or disability [email or web address] Not available 09/30 17:14:05 Medical History No medical history recorded. Gynecological HistoryNo gynecological history recorded. Obstetrics History GPAL:G 0 P 0 0 0 0 Immunizations Vaccine Type Date Status Note Provider Nam e and Address Organization Details Recorded Time influenza, unspecified formulation 04/12/2013 completed PAMELLA Luong - [facility] - [place] & [place] 09/06/2023 13:07:19 Tdap 05/23/2013 completed Amrita spain, PAMELLA - [facility] - [place] & [place] 09/06/2023 13:07:19 Hep A, adult 12/06/2018 completed ТАТЬЯНА spain, PAMLELA - [facility] - [place] & [place] 09/30/2022 17:13:07 Hep A, adult 06/03/2018 completed ТАТЬЯНА spain, [place] - [facility] [place] 09/30/2022 17:13:07 Influenza, split virus, quadrivalent, PF 04/26/2017 completed ТАТЬЯНА BONNIE null, [place] - [facility] & [place] 09/30/2022 17:13:07 SARS-COV-2 (COVID-19) vaccine, UNSPECIFIED 07/03/2020 completed Amritabritt Harvey null, [place] [facility] [place] & [place] 09/06/2023 13:07:19 SARS-COV-2 (COVID-19) vaccine, UNSPECIFIED 07/31/2020 completed Amritabritt Harvey null, [place] - [facility] & [place] 09/06/2023 13:07:19 influenza, unspecified formulation 06/10/2015 completed Amritabritt Harvey null, [place] [facility] [place] 09/06/2023 13:07:19 Past Encounters Encounter ID Performer Location Encounter Start Date Encounter Closed Date Diagnosis/Indication Diagnosis SNOMED-CT Code Diagnosis ICD10 Code Diagnosis Note [id number] Monae Ha DNP, [employer]-C, [employer]GRAMMER ANALYST [address] [place] [address] 09/30/2022 16:52:59 09/30/2022 17:29:24 Acute right otitis media 131972262 H66.91 Acute sinusitis 60493499 J01.90 Health Concerns Section Related Observation LastModified by Organization Detai ls LastModified Time None Recorded Concern Status LastModified by Organization Details LastModified Time None Recorded Advance Directives Directive None Recorded Payers Insurance Date Sequence Insurance Name Policy Number Policy Tsang Covered Member ID Tsang Member ID Guarantor Name 01/15/2024 1 [place] [id number] 1 Drew Sauceda [id number] Drew Sauceda Notes Date Note Type Note Provider Name and Address Organization Details Recorded Time 09/30/2022 text/html Per patietn she has horrible allergies. Patient has had nasal congestion, post nasal drip and ear pain. patient has had slight cough. Patient has not had body aches, chills, or fever. Patient has had headache. patient has not had any sick contacts that she knows of. Monae Ha DNP, [employer]C, [employer]ACLE PROGRAMMER ANALYST [address], [place], [address], [facility] - [place] - [place] & [place] 09/30/2022 17:26:33 OBGyn Episode No OBEpisode recorded.
== END 2025-01-06 23:59 | disposition home or self-care (01) ==
LOC: LAB.DROPOF 01-08 11:19
PROVIDERS: PCP Student in an Organized Health Care Education/Training Program; Visit Provider Student in an Organized Health Care Education/Training Program
DX: R35.0 Frequency of micturition (principal)
CPT/HCPCS: 87086

== ENCOUNTER 2025-05-18 08:17 | Outpatient (CLI) | payer BC, SELFPAY ==
--- OUTSIDE RECORDS SUMMARY | 2025-05-18 08:21 | XMS_ITS | Encounter Summary ---
Author Organization Healthcare Address [address] [place] [address] Care Team Providers Care Cutlery Grinder Name Role Phone Samira Harvey APRN Primary Care Provider [phone] Encounter Details Date Type Department Care Team (Late st Contact Info) Description 11/26/2022 Community [facility] [address] [place] [address] Samira Harvey APRN [address] [place] [address] MARIAM (obstructive sleep apnea) (Primary [...] documented as of this encounter Care Teams Cutlery Grinder Relationship Specialty Start Date End Date Samira Harvey APRN [address] [place] [address] [address] PCP - General 02/28/21 documented as of this encounter
--- OUTSIDE RECORDS SUMMARY | 2025-05-18 08:21 | XMS_ITS | Data Portability ---
Author Organization PAMELLA [facility]UM[facility]O [facility] Address [address] [facility] [address] [place] [address] Assessment Encounter Date Assessment Date Assessment LastModified by Organization Details LastModified Time 07/27/2018 07/27/2018 SURGERY DATE: 07/27/2018 PREOPERATIVE DIAGNOSES: Chronic cystitis with frequency of urination. Urethral stenosis. POSTOPERATIVE DIAGNOSES: Chronic cystitis with frequency of urination with chronic trigonitis. Urethral stenosis. PROCEDURE: Cystoscopy and urethral dilation. ANESTHESIA: Local MAC. SURGEON: Elder Melara MD BRIEF HISTORY: The patient is a young female with several months history of increasing frequency and urgency. She, for years, has had some mild stress incontinence, which has not typically been a factor but her urgency symptoms have become more problematic. She presented today for cystoscopy. OPERATIVE NOTE: After satisfactory sedation, she was carefully placed in a dorsal lithotomy position. The genitalia was prepped and draped in a normal fashion. External genitalia was unremarkable. Her bladder looked to be grossly supported well. A 19-Montenegrin cystoscope sheath was introduced. Bladder was inspected in its entirety, both with 30 and 70 degree lens. There was no evidence of cystocele. Ureteral orifices appeared to be situated in normal position. She appeared to efflux clear urine. She had left-sided vesicoureteral reflux as a teenager. This had not been recently studied, but her ureteral orifice looked to be normal in appearance. 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 Also the urethra was very snugged on a 19-Montenegrin cystoscopy sheath. Bladder was drained, cystoscope removed. Xylocaine gel was instilled into the urethra. Her urethra was calibrated up to 28 Montenegrin. She was placed on doxycycline b.i.d. for 2 weeks. She was also placed on oxybutynin chloride, extended release 10 mg. She will follow up with me in a month, earlier if necessary. [email or web address] Not available 07/28/2018 07:48:54 Plan of Treatment Reminders Order Date Submit Date Provider Last Modified By Organization Details Last Modified Time Details Appointments NEW PATIENT UROLOGY 2024 03:00P M SEBASTIÁN TONY MD Not available Not available Not available Lab None recorded . Referral None recorded . Procedures None recorded . Surgeries None recorded . Imaging None recorded . Medication Orders None recorded . Patient TargetsNo targets recorded. Patient Instructions Encounter Date Encounter Id Patient Instructions Last Modified By Organization Details Last Modified Time 08/18/2023 [id number] body mass index: care instructions [email or web address] Not available 08/18/2023 15:12:55 Patient was give n an opportunity and encouraged to ask questions. All questions and concerns were addressed to the best of my ability. Follow-up in 6 months or sooner if needed pending results of the Holter monitor. Thank you for allowing us to participate in the care of your patient. If we can be of any further assistance please do not hesitate to contact us. Roland Ocasio MD, FACP, FACC, [facility] [phone] katalina Not available 08/18/2023 15:12:54 Reason for Referral None Reported. Results Created Date Observation Date Name Description Value Unit Range Abnormal Flag Note LastModifiedBy Organization Detail LastModifiedTime 08/23/1908/18/2023 elect axel criseldagr am No observ ation record ed. BARCODE Not Available 2023 08:14:16 Result Notes None recorded. Problems No Known Problems Procedures Surgical History Date Name Laterality Status Provider Name and Address Organization Details Recorded Time 08/18/19 EKG completed [facility] 08/18/2023 14:34:17 tonsillectomy completed [facility] 08/18/2023 14:32:58 section completed [facility] 08/18/2023 14:33:23 Imaging Results None recorded. Procedure Notes None recorded. Medical Equipment None Reported. Allergies No known drug allergies Medications Not known to be on any medication Vitals Date Recorded Body height Body mass index (BMI) Body weight Respiratory rate Oxygen saturation Heart rate Systolic And Diastolic Provider Name and Address Organization Details Last Updated DateTime 165.1 cm 31.1 kg/m2 09743.7 7 g 16 /min 98 % 91 /min 102/76 mm[Hg] Vane Pedroza [facility] 14:40:47 Social History Question Answer Notes LastModified by [employer] Details LastModified Time Tobacco Smoking Status Never Smoker Vaneesteban Pedroza [facility] 08/18/2023 14:32:29 What Was The Date Of Your Most Recent Tobacco Screening? 08/18/2023 Information not available 08/18/2023 How Many Children Do You Have? 2 Information not available 08/18/2023 What Is Your Relationship Status? Information not available 08/18/2023 Has Tobacco Cessation Counseling Been Provided? No Information not available 08/18/2023 Sex: Unknown Functional Status Question Answer Note LastModified by Organ[employer]at [employer] Details LastModified Time Do you use any illicit or recreational drugs? No Information not available 08/18/2023 Do you or have you ever used any other forms of tobacco or nicotine? No Information not available 08/18/2023 What is your level of alcohol consumption? None Information not available 08/18/2023 Mental Status None recorded. Family History Relationship Description Onset Age of this Age Resolved Age Notes LastModified by Organization Details LastModified Time Unspecified Relation Heart disease sruark Not available 2023 14:31:31 Unspecified Relation Diabetes mellitus sruark Not available 2023 14:31:40 Unspecified Relation Hypertensive disorder sruark Not available 2023 14:32:00 Unspecified Relation Depressive disorder sruark Not available 2023 14:32:11 Medical History Condition Response Coronary Artery Disease N Atrial Fibrillation N Heart Arrhythmia N COPD N Peripheral Arterial Disease N Nervous Illness N Edema N Anxiety Disorder N Hiatal hernia N Acid Reflux (GERD) N Cancer N Stroke N Arrhythmia N Endocrine Disorder N Heart Problems N Heart Conditions N Implanted Cardiac Device N Black Lung N Ulcers N Rheumatic Fever N Bleeding Disorder N Tuberculosis N AIDS/HIV N Asthma N Cardiac Disease N Peripheral Vascular Disease N Jaundice N GERD/Reflux N Restless leg syndrome N Thyroid Disease N Lung Disease N Pacemaker N Vascular Disease N History of Blood Thinners N Blood Thinners N Shortness of Breath N High Cholesterol N Thyroid Problems N Chest Pain N Heart Attack (DE) N Diabetes N Cardiomyopathy N Heart Murmur N Congestive Heart Failure (CHF) N Hyperlipidemia N Sleep Apnea N Warfarin Management N Heart Disease N Hypertension Y Gynecological HistoryNo gynecological history recorded. Obstetrics History GPAL:G 0 P 0 0 0 0 Past Encounters Encounter ID Performer Location Encounter Start Date Encounter Closed Date Diagnosis/Indication Diagnosis SNOMED-CT Code Diagnosis ICD10 Code Diagnosis IMO Codes Diagnosis Note [id number] ELDER SPAULDING MD SURGERY SCHEDULE [address] [place] [address] 07/27/2018 06:59:26 07/27/2018 07:11:09 [id number] ROLAND OCASIO MD CARDIOLOG Y [address] [place] [phone] 08/18/2023 14:18:57 08/18/2023 15:40:06 Intermittent palpitations 230550000 R00.2 EKG reviewed which shows normal sinus rhythm. She is currently on no medication s. I have recommende d she increase dietary intake of potassium and magnesium. Cut down sodium intake. Cut down caffeine intake. I have advised her to keep yourself well-hydra dickson drinking at least 60 ounces of fluid a day.Recomm end compliance with CPAP once she gets it fitted.I have ordered a 5-day E patch monitor to assess her cardiac rhythm. I discussed this with the patient. She understand s and would like to proceed with it. Dyspnea 232436034 R06.00 Previous 2D echocardio gram reviewed. Obstructiv e sleep apnea syndrome 17019847 G47.33 She is being worked up for sleep apnea evaluation . Of note she will get fitted with a mask on 08/25/2023. Compliance with CPAP advised Obesity 106944282 E66.9 Current BMI 3 1.1. Target BMI 2 5. Weight loss counseled [id number] ROLAND OCASIO MD [facility] [address] [place] [id number] 08/18/2023 15:32:35 08/18/2023 15:36:46 Health Concerns Section Related Observation LastModified by Organization Detai ls LastModified Time None Recorded Concern Status LastModified by Organization Details LastModified Time None Recorded Advance Directives Directive None Recorded Payers Insurance Date Sequence Insurance Name Policy Number Policy Tsang Covered Member ID Tsang Member ID Guarantor Name 08/18/2023 1 [employer] (POS) Drew Martinez [id number] Drew Sauceda 08/18/2023 1 [employer] (PPO) Drew Martinez [id number] Drew Sauceda 05/09/2025 1 [place] [id number] Drew Sauceda [id number] Drew Sauceda Notes Date Note Type Note Provider Name and Address Organization Details Recorded Time 08/18/2023 text/html Ms. Sauceda is a 37-year-old female seen in consultation for intermittent palpitations and elevated heart rate. She had a prior history of hypertension and was treated with medications. This has been discontinued. Of note she has had COVID 3 times in the past. Last episode was in February 2023. Since then she has been complaining of high heart rate and shortness of breath. 2D echocardiogram done on 11/03/2021 showed normal LV function. LVEF 55%. No significant valvular abnormalities. No significant pericardial effusion.She has obstructive sleep apnea and is awaiting placement of the mask on 08/25/2023. Recent lab work was within normal limits. Thyroid function was within normal limits. She otherwise denies any chest pain, no PND, no orthopnea or syncope. She does complain of elevated heart rates. Of note she does have family history of atrial fibrillation as well. EKG done today shows sinus rhythm at 91 bpm ROLAND OCASIO MD [address] [facility] [place], [address], [facility] 08/18/2023 15:16:02 OBGyn Episode No OBEpisode recorded.
--- OUTSIDE RECORDS SUMMARY | 2025-05-18 08:21 | XMS_ITS | Data Portability ---
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 Sequence Insurance Name Policy Number Policy Tsang Covered Member ID Tsang Member ID Guarantor Name 08/13/2023 1 [employer] (PPO) [id number] 1 Drew Sauceda [id number] Drew Sauceda 08/13/2023 1 [employer] (POS) Drew Sohail [id number] Drew Sauceda Notes Date Note Type Note Provider Name and Address Organization Details Recorded Time 9 text/html Annual - MOBReported by PatientHistoryFor history, patient reportslast annual exam: 06/10/15andno gynecologic complaints.ContraceptionFo r current contraception, patient reportssatisfied with current contraceptionandtubal ligation.Preventative measuresFor preventive measures, patient reportshistory of abnormal pap smear/cervical dysplasiabut reportsencourage self breast examination,encourage regular exercise, andencourage regular mammograms starting age 40.Drew returns for AWE. She is doing well. She states she got in Feb and is very happy! Joyce Finnegan, [employer] DEVELOPER [address], [place], [address], [place] [facility] 07/21/2018 11:17:33 1 text/html Annual - MOBReported by PatientHistoryFor history, patient reportslast annual exam: 07/21/2018andno gynecologic complaints.ContraceptionFo r current contraception, patient reportssatisfied with current contraceptionandtubal ligation.Preventative measuresFor preventive measures, patient reportshistory of abnormal pap smear/cervical dysplasiabut reportsencourage self breast examination,encourage regular exercise, andencourage no tobacco use.Drew rto for AWE. She is doing well [...] this. Joyce Finnegan, JODY [address], [place], [address], [place] [facility] 08/30/2020 12:51:34 4 text/html Annual - MOBReported by PatientHistoryFor history, patient reportslast annual exam: 08/30/20andno gynecologic complaints.ContraceptionFo r current contraception, patient reportssatisfied with current contraception,monogamous relationship, andtubal ligation.Preventative measuresFor preventive measures, patient reportshistory of abnormal pap smear/cervical dysplasiabut reportsencourage self breast examination,encourage regular exercise, andencourage no tobacco use.Drew rto for AWE. She is doing well.She requests referral to GI. She states she was informed by Dr. Gooden she should start colon cancer screening d/t her mother's dx. Joyce Finnegan, JODY [address], [place], [address], [place] - [facility] 08/15/2023 20:55:40 OBGyn Episode No OBEpisode recorded.
--- OUTSIDE RECORDS SUMMARY | 2025-05-18 08:21 | XMS_ITS | Clinical Summary ---
Author Organization Healthcare Address [address] [place] [address] Care Team Providers Care Line Patrolman Name Role Phone Samira Harvey JODY Primary Care Provider [phone] Allergies Active Allergy Reactions Criticality Noted Date [...] (pelvic floor dysfunction) 05/06/2021 Urinary frequency 05/06/2021 Resolved Problems Problem Noted Date Diagnosed Date Resolved Date Nocturia 05/06/2021 03/18/2025 Family History Medical History Relation Name Comments [...] of 2 - 13+ 2-dose series) 10/11/1996 [facility]- SDOH Screenings 10/11/2001 [facility]-Adult SDOH Screenings 10/11/2001 [facility]-Hepatitis B Vaccines (1 of 3 - 19+ 3-dose series) 10/11/2002 [facility]-Pap Smear 10/11/2004 HPV Vaccines (1 - 3-dose SCDM series) 10/11/2010 [facility]-Cervical Cancer Screening 10/11/2013 [facility]-HPV/Cotest 10/11/2013 [facility]-DTaP,Tdap,and Td Vaccines (2 - Td or Tdap) 05/23/2023 05/23/2013 [id number] Vaccine (4 - 2024- season) 2025 06/23/2021, 07/31/2020, 07/03/2020 [facility]-Influenza Vaccine (#1) 02/26/202504/26, [...] patient's age to complete this topic Insurance DR CHAVEZ, P[place] [id number] [employer] Care Teams Line Patrolman Relationship Specialty Start Date End Date Samira Harvey APRN [facility] [address] [address] PCP - General 02/28/21
[2025-05-18 08:47] LABS: Hematocrit 41.1 % (37.0-47.0); Hemoglobin 13.4 g/dL (12.2-16.2); Immature Granulocytes % 0.3 %; Mean Corpuscular HGB Conc 32.6 g/dL (31.8-35.4); Mean Corpuscular Hemoglobin 27.2 pg (27.0-31.2); Mean Corpuscular Volume 83.4 fl (81-99); Nucleated Red Blood Cells % 0 %; Platelet Count 264 K/mm3 (142-424); Red Blood Count 4.93 M/mm3 (4.20-5.40); Red Cell Distribution Width-SD 38.7 fL; White Blood Count 5.9 K/mm3 (4.8-10.8)
[2025-05-18 09:31] LABS: Alanine Aminotransferase 21 U/L (12-78); Albumin Level 4.1 g/dl (3.5-5.0); Albumin/Globulin Ratio 1.5 (1.1-1.8); Alkaline Phosphatase 96 U/L (38-126); Anion Gap 9.0 mEq/L (5-15); Aspartate Amino Transferase 24 U/L (14-36); Bilirubin,Total 0.5 mg/dl (0.2-1.3); Blood Urea Nitrogen 13 mg/dl (7-17); Calcium 9.2 mg/dl (8.4-10.2); Carbon Dioxide 25 mmol/L (22.0-30.0); Chloride 103 mmol/L (98-107); Cholesterol 211 mg/dl (140-200); Creatinine,Serum 0.70 mg/dl (0.52-1.04); Estimated Glomerular Filt Rate 92 ml/min (>60); GFR (African American) 112 ML/MIN (>60); Globulin 2.8 g/dL (1.3-3.2); Glucose 111 mg/dl (74-100); HDL Cholesterol 54 mg/dl (40-60); Potassium 4.0 mmoL/L (3.5-5.1); Sodium 133 mmol/L (136-145); Total Protein,Serum 6.9 g/dl (6.3-8.2); Triglycerides 128 mg/dl (30-150)
[2025-05-18 09:59] LABS: Thyroid Stimulating Hormone 1.32 uIU/mL (0.465-4.68)
== END 2025-05-18 23:59 | disposition home or self-care (01) ==
LOC: LAB 08:18
PROVIDERS: PCP Nurse Practitioner Family; Visit Provider Nurse Practitioner Family
DX: Z00.00 Encounter for general adult medical examination without abnormal findings (principal); N39.0 Urinary tract infection, site not specified; R53.83 Other fatigue
CPT/HCPCS: 36415; 80053; 80061; 84443; 85025; 87086

== ENCOUNTER 2025-06-02 08:25 | Outpatient (CLI) | payer BC, SELFPAY | END 2025-06-02 23:59 | disposition home or self-care (01) | LOC: LAB.DROPOF 06-04 08:27 | PROVIDERS: PCP Nurse Practitioner Family; Visit Provider Nurse Practitioner Family | DX: N39.0 Urinary tract infection, site not specified (principal) | CPT/HCPCS: 87086 ==